=== PATIENT | male | born 1965 | race Caucasian/White ===

== ENCOUNTER 2020-06-10 07:48 | Outpatient (CLI) | payer OTHER, SELFPAY ==
--- NOTE | 2020-06-10 08:16 | XR_ITS ---
WS: [id number] HIPS BILATERAL TECHNIQUE: 5 views bilateral hips Including pelvis CLINICAL INFORMATION: HIP PAIN COMPARISON: None. FINDINGS: Pelvic phleboliths. Both hips are normal in appearance. Mild degenerative arthritis with joint space narrowing. Normal pubic rami. No acute fractures. XR/XR hip BI m 5V wo/w pel* [id number] IMPRESSION: Mild degenerative arthritis both hips. No acute fractures.
--- NOTE | 2020-06-10 08:16 | XR_ITS ---
WS: [id number] LUMBAR SPINE TECHNIQUE: 3 views of the lumbar spine CLINICAL INFORMATION: HIP PAIN COMPARISON: None. FINDINGS: Five iet-kdo-jrhwamv lumbar vertebral bodies. Mild lumbar curve convex right. Mild disc space narrowi ng L5-S1. Disc space heights are otherwise well preserved. No compression fractures. No spondylolisth esis. Mild facet arthropathy L5-S1. Visualized sacroiliac joints are normal. Normal visualized soft t issues. Partially visualized bowel gas pattern is normal. XR/XR lumbar spine 2-3V* [id number] IMPRESSION: 1. Mild disc space narrowing L5-S1. 2. Mild facet arthropathy L5-S1. 3. Mild chronic anterior wedging T12.
== END 2020-06-10 07:49 | disposition home or self-care (01) ==
PROVIDERS: Visit Provider Family Medicine
DX: M47.817 Spondylosis without myelopathy or radiculopathy, lumbosacral region (principal); M48.54XA Collapsed vertebra, not elsewhere classified, thoracic region, initial encounter for fracture; M16.0 Bilateral primary osteoarthritis of hip
CPT/HCPCS: 72100; 73523